=== PATIENT | male | born 1950 | race Caucasian/White ===

== ENCOUNTER 2017-08-29 11:18 | Day surgery (SDC) | payer MEDICARE, MEDICAID ==
[~2017-08-29 11:18] MED LIST: ASPI-1265 PO; ATOR10TA70 PO; CARV-50 PO; FURO20TA4 PO; LISI-604 PO; NITR0.4T48 SL
== END 2017-08-29 12:25 | disposition home or self-care (01) ==
LOC: WOUND CARE 11:18
PROVIDERS: ATTEND Surgery
DX: L97.511 Non-pressure chronic ulcer of other part of right foot limited to breakdown of skin (principal); I11.0 Hypertensive heart disease with heart failure; I50.23 Acute on chronic systolic (congestive) heart failure; F15.90 Other stimulant use, unspecified, uncomplicated; Z79.82 Long term (current) use of aspirin; Z79.899 Other long term (current) drug therapy; Z85.038 Personal history of other malignant neoplasm of large intestine
CPT/HCPCS: 17250; A6021; A6206

== ENCOUNTER 2017-09-13 11:13 | Day surgery (SDC) | payer MEDICARE, MEDICAID ==
[2017-09-13] MEDS ORDERED: LIDOcaine 2% 5ml jelly ONE (11:58)
== END 2017-09-13 12:17 | disposition home or self-care (01) ==
LOC: WOUND CARE 11:13
PROVIDERS: ATTEND Surgery
DX: T81.89XD Other complications of procedures, not elsewhere classified, subsequent encounter (principal); L98.491 Non-pressure chronic ulcer of skin of other sites limited to breakdown of skin; I11.0 Hypertensive heart disease with heart failure; I50.23 Acute on chronic systolic (congestive) heart failure; F15.90 Other stimulant use, unspecified, uncomplicated; F60.9 Personality disorder, unspecified; Z79.82 Long term (current) use of aspirin; Z79.899 Other long term (current) drug therapy; Z85.038 Personal history of other malignant neoplasm of large intestine; Z79.01 Long term (current) use of anticoagulants; Y83.8 Other surgical procedures as the cause of abnormal reaction of the patient, or of later complication, without mention of misadventure at the time of the procedure
CPT/HCPCS: 17250; A6021; A6206; A6213

== ENCOUNTER 2017-09-27 11:14 | Outpatient (CLI) | payer MEDICARE, MEDICAID | END 2017-09-27 12:40 | disposition home or self-care (01) | LOC: WOUND CARE 11:14 | PROVIDERS: ATTEND Surgery | DX: T81.89XD Other complications of procedures, not elsewhere classified, subsequent encounter (principal); L98.491 Non-pressure chronic ulcer of skin of other sites limited to breakdown of skin; I11.0 Hypertensive heart disease with heart failure; I50.23 Acute on chronic systolic (congestive) heart failure; F15.90 Other stimulant use, unspecified, uncomplicated; F60.9 Personality disorder, unspecified; Z79.82 Long term (current) use of aspirin; Z79.899 Other long term (current) drug therapy; Z85.038 Personal history of other malignant neoplasm of large intestine; Z79.01 Long term (current) use of anticoagulants; Y83.8 Other surgical procedures as the cause of abnormal reaction of the patient, or of later complication, without mention of misadventure at the time of the procedure | CPT/HCPCS: 17250; A6021; A6206; A6212 ==

== ENCOUNTER 2017-10-14 03:19 | Inpatient (IN) | payer MEDICARE, MEDICAID ==
[~2017-10-14] VITALS: Ht 170.2 cm; Wt 64.0 kg
[2017-10-14] MEDS ORDERED: albuterol 2.5 MG/3 ML nebule NEB ONE (03:55)
[2017-10-14 04:10] LABS: BASOPHILS # (AUTO) 0.1 X10'3 (0-0.2); BASOPHILS % (AUTO) 0.9 % (0-1); EOSINOPHILS # (AUTO) 0.2 X10'3 (0-0.9); EOSINOPHILS % (AUTO) 3.1 % (0-6); HEMATOCRIT 29.9 % (42.0-52.0); HEMOGLOBIN 10.2 g/dl (14.0-17.9); LYMPHOCYTES # (AUTO) 0.8 X10'3 (1.1-4.8); LYMPHOCYTES % (AUTO) 13.2 % (21-51); MEAN CORPUSCULAR HEMOGLOBIN 29.7 PG (27.0-31.0); MEAN CORPUSCULAR HGB CONC 34.2 % (33.0-36.5); MEAN CORPUSCULAR VOLUME 86.7 FL (78-98); MEAN PLATELET VOLUME 7.5 FL (7.4-10.4); MONOCYTES # (AUTO) 0.5 X10'3 (0-0.9); MONOCYTES % (AUTO) 9.1 % (2-12); NEUTROPHILS # (AUTO) 4.4 X10'3 (1.8-7.7); NEUTROPHILS % (AUTO) 73.7 % (42-75); PLATELET COUNT 249 X10'3 (140-440); RED BLOOD COUNT 3.45 X10'6 (4.70-6.10); RED CELL DISTRIBUTION WIDTH 15.5 % (11.5-14.5)
[2017-10-14 04:32] LABS: ANION GAP 8 (8-16); BLOOD UREA NITROGEN 47 MG/DL (7-18); BUN/CREATININE RATIO 33.6 (5.4-32.0); CALCIUM 8.1 MG/DL (8.5-10.1); CHLORIDE 102 MMOL/L (99-107); GLUCOSE 108 MG/DL (70-104); PHOSPHORUS 4.8 MG/DL (2.3-4.5); POTASSIUM 4.2 MMOL/L (3.5-5.1); SODIUM 138 MMOL/L (135-145); TOTAL CARBON DIOXIDE 27.9 MMOL/L (24-32); eGFR 50 ML/MIN
[2017-10-14 04:33] LABS: ALANINE AMINOTRANSFERASE 69 U/L (12-78); ALBUMIN 3.1 G/DL (3.4-5.0); ALBUMIN/GLOBULIN RATIO 0.8 (1.1-1.5); ALKALINE PHOSPHATASE 149 IU/L (46-116); ASPARTATE AMINO TRANSFERASE 56 U/L (10-37); BILIRUBIN,TOTAL 0.4 MG/DL (0.1-1.0); MAGNESIUM 1.7 MG/DL (1.5-2.4)
[2017-10-14] MEDS ORDERED: normal saline 1000ml 1,000 ML IV SCH (04:45)
[2017-10-14] MEDS ORDERED: diphenhydrAMINE 25mg capsule PO PRN (04:45)
[2017-10-14] MEDS ORDERED: magnesium hydroxide 30ml (MOM) UD suspension PO PRN (04:45)
[2017-10-14] MEDS ORDERED: ondansetron/PF 4mg/2ml inj IV PRN (04:45)
[2017-10-14] MEDS ORDERED: bisacodyl 10mg suppository rectal RC PRN (04:45)
[2017-10-14] MEDS ORDERED: HYDROmorphone inj. 0.5 MG/0.5 ML DISP.SYRIN IV PRN ×2 (04:45)
[2017-10-14] MEDS ORDERED: HYDROcodone/acetaminophen 5mg/325mg tablet PO PRN (04:45)
[2017-10-14] MEDS ORDERED: mag hydrox/Alum hydrox/simeth 30ml oral suspension PO PRN (04:45)
[2017-10-14] MEDS ORDERED: HYDROcodone/acetaminophen 10/325mg tab PO PRN (04:45)
[2017-10-14] MEDS ORDERED: diphenhydrAMINE 50 mg/ml inj IV PRN (04:45)
[2017-10-14] MEDS ORDERED: morphine 2 MG/ML inj. syringe IV PRN ×2 (04:45)
[2017-10-14] MEDS ORDERED: metoclopramide 5 mg/ml inj IV PRN (04:45)
[2017-10-14] MEDS ORDERED: acetaminophen 650mg rectal suppository RC PRN (04:45)
[2017-10-14] MEDS ORDERED: acetaminophen 325mg tablet PO PRN (04:45)
[2017-10-14] MEDS ORDERED: aspirin 81mg tab.chew PO ONE (05:10)
[2017-10-14] MEDS ORDERED: furosemide 10 MG/1 ML 10ml inj IV ONE (05:10)
[2017-10-14 07:08] LABS: URINE AMPHETAMINE SCREEN POSITIVE (Neg); URINE BARBITUATE SCREEN NEGATIVE (Neg); URINE BENZODIAZEPINES SCREEN NEGATIVE (Neg); URINE CANNABINOID SCREEN NEGATIVE (Neg); URINE COCAINE SCREEN NEGATIVE (Neg); URINE METHADONE SCREEN NEGATIVE (Neg); URINE OPIATE SCREEN NEGATIVE (Neg); URINE PHENCYCLIDINE SCREEN NEGATIVE (Neg)
[2017-10-14 07:30] VITALS: BP 111/68
[2017-10-14] MEDS ORDERED: aspirin 81mg tab.chew PO SCH (08:00)
[2017-10-14] MEDS: carVEDilol 12.5mg tablet PO SCH ×2 (09:02→20:00)
[2017-10-14] MEDS: lisinopril 5mg tablet PO SCH (09:02)
[2017-10-14] MEDS: pantoprazole 40mg Tablet.DR PO SCH (09:02)
[2017-10-14] MEDS: enoxaparin 60mg/0.6ml syringe SUBCUT SCH ×2 (09:02→20:45)
[2017-10-14] MEDS: docusate sod 100mg capsule PO SCH ×2 (09:02→20:00)
[2017-10-14 11:00] VITALS: BP 91/56
[2017-10-14 15:00] VITALS: BP 90/51
[2017-10-14 19:00] VITALS: BP 97/55
[2017-10-14] MEDS ORDERED: atorvastatin 10mg tablet PO SCH (21:00)
[2017-10-14] MEDS ORDERED: temazepam 15mg capsule PO PRN (21:00)
[2017-10-14 23:00] VITALS: BP 92/65
[2017-10-15] MEDS ORDERED: LORazepam 2 mg/ml vial IV PRN (02:50)
[2017-10-15 03:00] VITALS: BP 92/66
[2017-10-15 05:08] LABS: BASOPHILS # (AUTO) 0.1 X10'3 (0-0.2); BASOPHILS % (AUTO) 0.8 % (0-1); EOSINOPHILS # (AUTO) 0.2 X10'3 (0-0.9); EOSINOPHILS % (AUTO) 3.1 % (0-6); HEMATOCRIT 33.4 % (42.0-52.0); HEMOGLOBIN 11.3 g/dl (14.0-17.9); LYMPHOCYTES # (AUTO) 1.1 X10'3 (1.1-4.8); LYMPHOCYTES % (AUTO) 15.2 % (21-51); MEAN CORPUSCULAR HEMOGLOBIN 29.5 PG (27.0-31.0); MEAN CORPUSCULAR HGB CONC 33.7 % (33.0-36.5); MEAN CORPUSCULAR VOLUME 87.5 FL (78-98); MEAN PLATELET VOLUME 7.9 FL (7.4-10.4); MONOCYTES # (AUTO) 0.6 X10'3 (0-0.9); MONOCYTES % (AUTO) 8.6 % (2-12); NEUTROPHILS # (AUTO) 5.3 X10'3 (1.8-7.7); NEUTROPHILS % (AUTO) 72.3 % (42-75); PLATELET COUNT 308 X10'3 (140-440); RED BLOOD COUNT 3.81 X10'6 (4.70-6.10); RED CELL DISTRIBUTION WIDTH 16.1 % (11.5-14.5); WHITE BLOOD COUNT 7.3 X10'3 (4.5-11.0)
[2017-10-15 05:28] LABS: ALANINE AMINOTRANSFERASE 58 U/L (12-78); ALBUMIN 3.2 G/DL (3.4-5.0); ALBUMIN/GLOBULIN RATIO 0.8 (1.1-1.5); ALKALINE PHOSPHATASE 140 IU/L (46-116); ANION GAP 8 (8-16); ASPARTATE AMINO TRANSFERASE 29 U/L (10-37); BILIRUBIN,TOTAL 0.4 MG/DL (0.1-1.0); BLOOD UREA NITROGEN 43 MG/DL (7-18); BUN/CREATININE RATIO 28.1 (5.4-32.0); CALCIUM 8.6 MG/DL (8.5-10.1); CHLORIDE 104 MMOL/L (99-107); CHOL/HDL RATIO 2.5 (0.00-4.99); CHOLESTEROL 98 MG/DL (0-200); CREATININE 1.53 MG/DL (0.60-1.10); GLUCOSE 118 MG/DL (70-104); HDL CHOLESTEROL 40 MG/DL (35-60); LDL CHOLESTEROL 47 MG/DL (50-100); POTASSIUM 4.6 MMOL/L (3.5-5.1); SODIUM 139 MMOL/L (135-145); TOTAL CARBON DIOXIDE 27.3 MMOL/L (24-32); TOTAL PROTEIN 7.4 G/DL (6.4-8.2); TRIGLYCERIDES 53 MG/DL (20-135); eGFR 45 ML/MIN
[2017-10-15 07:00] VITALS: BP 124/94
[2017-10-15] MEDS: lisinopril 5mg tablet PO SCH (07:57)
[2017-10-15] MEDS: carVEDilol 12.5mg tablet PO SCH (07:57)
[2017-10-15] MEDS: enoxaparin 60mg/0.6ml syringe SUBCUT SCH (07:57)
[2017-10-15] MEDS: pantoprazole 40mg Tablet.DR PO SCH (07:57)
[2017-10-15] MEDS: docusate sod 100mg capsule PO SCH (07:58)
== END 2017-10-15 09:25 | disposition left against medical advice (07) | DRG 280 ==
LOC: ER 03:19 → ED HOLD 04:45 → EDBEDREQ 06:34 → PCU 3S 07:25
PROVIDERS: ADMIT Family Medicine; ATTEND Emergency Medicine
DX: I21.4 Non-ST elevation (NSTEMI) myocardial infarction (principal); I50.23 Acute on chronic systolic (congestive) heart failure; N17.9 Acute kidney failure, unspecified; I11.0 Hypertensive heart disease with heart failure; E86.0 Dehydration; E86.1 Hypovolemia; F15.10 Other stimulant abuse, uncomplicated; Z53.21 Procedure and treatment not carried out due to patient leaving prior to being seen by health care provider; Z93.3 Colostomy status; Z91.030 Bee allergy status; Z79.899 Other long term (current) drug therapy; Z79.82 Long term (current) use of aspirin; Z85.038 Personal history of other malignant neoplasm of large intestine; Z82.5 Family history of asthma and other chronic lower respiratory diseases; Z83.3 Family history of diabetes mellitus
CPT/HCPCS: 36415; 71045; 80053; 80061; 80305; 83735; 83880; 84100; 84484; 85025; 93005; 94640; 94760; 99285; J1650; J1940; J2060; J7030

== ENCOUNTER 2021-03-18 03:41 | Emergency (ER) | payer MEDICARE, MEDICAID ==
[~2021-03-18] VITALS: Ht 170.2 cm; Wt 65.9 kg
[~2021-03-18 03:41] MED LIST changes: -CARV-50 PO; +CARV6.253 PO; +FLO0.4C PO; -LISI-604 PO; +LISI-790 PO; +METO-395 PO
[2021-03-18 05:07] LABS: EOSINOPHILS # (AUTO) 0.2 X10'3 (0-0.9); EOSINOPHILS % (AUTO) 3.3 % (0-6); MONOCYTES # (AUTO) 0.9 X10'3 (0-0.9); NEUTROPHILS # (AUTO) 3.9 X10'3 (1.8-7.7); WHITE BLOOD COUNT 6.1 X10'3 (4.5-11.0)
[2021-03-18 05:09] LABS: BASOPHILS % (AUTO) 0.7 % (0-1); HEMATOCRIT 36.9 % (42.0-52.0); HEMOGLOBIN 12.4 g/dl (14.0-17.9); LYMPHOCYTES # (AUTO) 1.1 X10'3 (1.1-4.8); LYMPHOCYTES % (AUTO) 17.8 % (21-51); MEAN CORPUSCULAR HEMOGLOBIN 32.2 PG (27.0-31.0); MEAN CORPUSCULAR HGB CONC 33.6 g/dL (33.0-36.5); MEAN PLATELET VOLUME 7.8 FL (7.4-10.4); MONOCYTES % (AUTO) 14.1 % (2-12); NEUTROPHILS % (AUTO) 64.1 % (42-75); PLATELET COUNT 202 X10'3 (140-440); RED BLOOD COUNT 3.84 X10'6 (4.70-6.10); RED CELL DISTRIBUTION WIDTH 15.6 % (11.5-14.5)
[2021-03-18 05:19] LABS: CLARITY,URINE BLOODY (Clear); COLOR,URINE RED (Yellow); UA COLLECTION TYPE CLN CATCH MIDSTREAM
[2021-03-18 05:21] LABS: BACTERIA,URINE 3+ /HPF (Neg); MUCUS STRANDS NONE SEEN /LPF (Neg); RBC,URINE TNTC /HPF (0-2); SQUAMOUS EPITHELIAL CELL,UR FEW /LPF (FEW); WBC CLUMPS,URINE MANY /HPF (NEGATIVE); WBC,URINE TNTC /HPF (0-4)
[2021-03-18 05:39] LABS: ALANINE AMINOTRANSFERASE 28 U/L (12-78); ALBUMIN/GLOBULIN RATIO 1.1 (1.1-1.5); ALKALINE PHOSPHATASE 113 IU/L (46-116); ANION GAP 9 (8-16); ASPARTATE AMINO TRANSFERASE 23 U/L (10-37); BILIRUBIN,TOTAL 0.4 MG/DL (0.1-1.0); BLOOD UREA NITROGEN 44 MG/DL (7-18); BUN/CREATININE RATIO 27.3 (5.4-32.0); CALCIUM 8.6 MG/DL (8.5-10.1); CHLORIDE 104 MMOL/L (99-107); CREATININE 1.61 MG/DL (0.60-1.10); GLUCOSE 88 MG/DL (70-104); LIPASE 443 U/L (73-393); POTASSIUM 4.7 MMOL/L (3.5-5.1); SODIUM 135 MMOL/L (135-145); TOTAL CARBON DIOXIDE 21.9 MMOL/L (24-32); TOTAL PROTEIN 7.5 G/DL (6.4-8.2); eGFR 42 ML/MIN
[2021-03-18 07:17] VITALS: BP 98/58
[2021-03-18] MEDS ORDERED: CEPH-585 PO (07:30)
[2021-03-18] MEDS ORDERED: cephalexin 500mg capsule PO ONE (07:30)
== END 2021-03-18 07:46 | disposition home or self-care (01) ==
LOC: ER 03:42
DX: N30.81 Other cystitis with hematuria (principal); I11.0 Hypertensive heart disease with heart failure; I50.9 Heart failure, unspecified; F17.200 Nicotine dependence, unspecified, uncomplicated; F15.90 Other stimulant use, unspecified, uncomplicated; Z86.73 Personal history of transient ischemic attack (TIA), and cerebral infarction without residual deficits; Z87.01 Personal history of pneumonia (recurrent); Z85.038 Personal history of other malignant neoplasm of large intestine; Z98.890 Other specified postprocedural states; Z79.82 Long term (current) use of aspirin; Z79.2 Long term (current) use of antibiotics; Z79.899 Other long term (current) drug therapy
CPT/HCPCS: 36415; 80053; 81001; 83690; 85025; 87088; 99283

== ENCOUNTER 2021-04-12 20:12 | Inpatient (IN) | payer MEDICARE, MEDICAID ==
[~2021-04-12] VITALS: Ht 170.2 cm; Wt 65.4 kg
[~2021-04-12 20:12] MED LIST changes: +CEPH-585 PO
[2021-04-12 20:57] LABS: BASOPHILS % (AUTO) 0.6 % (0-1); EOSINOPHILS # (AUTO) 0.2 X10'3 (0-0.9); HEMATOCRIT 36.4 % (42.0-52.0); HEMOGLOBIN 12.3 g/dl (14.0-17.9); LYMPHOCYTES % (AUTO) 18.1 % (21-51); MEAN CORPUSCULAR HEMOGLOBIN 32.1 PG (27.0-31.0); MEAN CORPUSCULAR HGB CONC 33.8 g/dL (33.0-36.5); MEAN PLATELET VOLUME 7.5 FL (7.4-10.4); MONOCYTES # (AUTO) 0.6 X10'3 (0-0.9); MONOCYTES % (AUTO) 9.9 % (2-12); NEUTROPHILS # (AUTO) 3.9 X10'3 (1.8-7.7); NEUTROPHILS % (AUTO) 68.4 % (42-75); PLATELET COUNT 208 X10'3 (140-440); RED BLOOD COUNT 3.83 X10'6 (4.70-6.10); RED CELL DISTRIBUTION WIDTH 14.6 % (11.5-14.5); WHITE BLOOD COUNT 5.7 X10'3 (4.5-11.0)
[2021-04-12 21:01] LABS: ALANINE AMINOTRANSFERASE 34 U/L (12-78); ALBUMIN 4.1 G/DL (3.4-5.0); ALBUMIN/GLOBULIN RATIO 1.1 (1.1-1.5); ALKALINE PHOSPHATASE 102 IU/L (46-116); ANION GAP 13 (8-16); ASPARTATE AMINO TRANSFERASE 24 U/L (10-37); BILIRUBIN,TOTAL 0.3 MG/DL (0.1-1.0); BLOOD UREA NITROGEN 53 MG/DL (7-18); BUN/CREATININE RATIO 31.7 (5.4-32.0); CALCIUM 8.5 MG/DL (8.5-10.1); CHLORIDE 105 MMOL/L (99-107); CREATININE 1.67 MG/DL (0.60-1.10); GLUCOSE 109 MG/DL (70-104); POTASSIUM 4.8 MMOL/L (3.5-5.1); SODIUM 138 MMOL/L (135-145); TOTAL CARBON DIOXIDE 19.9 MMOL/L (24-32); TOTAL PROTEIN 7.7 G/DL (6.4-8.2); eGFR 41 ML/MIN
[2021-04-12 21:10] LABS: TROPONIN I 0.11 NG/ML (0.0-0.05)
--- NOTE | 2021-04-12 21:14 | NUR ---
PT TAKEN TO ROOM 7 VIA MD Hanna NOTIFIED OF CURRENT BP
--- NOTE | 2021-04-12 22:00 | NUR ---
PT BP MID-80'S PROVIDER AWARE.
[2021-04-12] MEDS ORDERED: normal saline 1000ml 1,000 ML IV ONE (22:15)
[2021-04-12] MEDS ORDERED: aspirin 81mg tab.chew PO ONE (22:15)
--- NOTE | 2021-04-13 02:27 | NUR ---
PT UP AND AMBULATORY TO BATHROOM WITH STEADY GAIT.
[2021-04-13] MEDS ORDERED: magnesium hydroxide 30ml (MOM) UD suspension PO PRN (03:05)
[2021-04-13] MEDS ORDERED: potassium Cl 40MEQ/1/2NS 520ml 520 ML IV PRN ×2 (03:05)
[2021-04-13] MEDS ORDERED: mag hydrox/Alum hydrox/simeth 30ml oral suspension PO PRN (03:05)
[2021-04-13] MEDS ORDERED: magnesium 4gm in 100ml NS 100 ML IV PRN (03:05)
[2021-04-13] MEDS ORDERED: normal saline 1000ml 1,000 ML IV SCH (03:05)
[2021-04-13] MEDS ORDERED: ondansetron/PF 4mg/2ml inj IV PRN (03:05)
[2021-04-13] MEDS ORDERED: magnesium Cl slow-release 64mg tablet PO PRN (03:05)
[2021-04-13] MEDS ORDERED: acetaminophen 325mg tablet PO PRN ×2 (03:05)
[2021-04-13] MEDS ORDERED: magnesium 2GM in 50ml NS 50 ML IV PRN (03:05)
[2021-04-13] MEDS ORDERED: potassium Cl 20 mEq SR tablet PO PRN ×2 (03:05)
--- NOTE | 2021-04-13 06:56 | NUR ---
received report from sami sheehan
--- NOTE | 2021-04-13 07:10 | NUR ---
ORTHOPEDIC ASSISTANT AT BEDSIDE.
[2021-04-13] MEDS ORDERED: lisinopril 5mg tablet PO SCH (08:00)
[2021-04-13] MEDS: furosemide 20 MG/2 ML vial IV SCH ×2 (08:15→20:00)
[2021-04-13] MEDS: K and/or MAG REPLACEMENT MC SCH ×2 (09:00→20:00)
[2021-04-13] MEDS: aspirin 81mg tab.chew PO SCH (09:20)
[2021-04-13] MEDS: carVEDilol 3.125mg tablet PO SCH ×2 (09:21→20:00)
[2021-04-13] MEDS: tamsulosin 0.4mg capsule PO SCH (09:21)
[2021-04-13 09:49] VITALS: BP 101/45
[2021-04-13 09:50] VITALS: BP_SYST 101; BP_SYST 112; BP_SYST 94; BP_DIAS 45; BP_DIAS 49; BP_DIAS 53
[2021-04-13] MEDS: heparin, porcine 5000 units/ml vial SQ SCH ×2 (09:52→20:00)
[2021-04-13] MEDS ORDERED: CARV6.253 PO (10:45)
[2021-04-13 18:00] VITALS: BP 96/42
--- NOTE | 2021-04-13 18:17 | NUR ---
gave report to sami an
[2021-04-13 20:00] VITALS: BP_SYST 126; BP_SYST 76; BP_SYST 95; BP_SYST 97; BP_DIAS 52; BP_DIAS 56; BP_DIAS 58; BP_DIAS 59
[2021-04-13] MEDS ORDERED: atorvastatin 10mg tablet PO SCH (21:00)
[2021-04-13 22:00] VITALS: BP 99/52
[2021-04-14] VITALS: BP 99/52
[2021-04-14 02:00] VITALS: BP 97/56
[2021-04-14 04:00] VITALS: BP 97/56
[2021-04-14 06:00] VITALS: BP 96/42
[2021-04-14 06:31] LABS: BASOPHILS % (AUTO) 0.5 % (0-1); EOSINOPHILS # (AUTO) 0.2 X10'3 (0-0.9); EOSINOPHILS % (AUTO) 4.1 % (0-6); HEMATOCRIT 35.7 % (42.0-52.0); HEMOGLOBIN 12.1 g/dl (14.0-17.9); MEAN CORPUSCULAR HEMOGLOBIN 32.1 PG (27.0-31.0); MEAN CORPUSCULAR HGB CONC 33.8 g/dL (33.0-36.5); MEAN PLATELET VOLUME 7.6 FL (7.4-10.4); MONOCYTES # (AUTO) 0.5 X10'3 (0-0.9); NEUTROPHILS # (AUTO) 3.8 X10'3 (1.8-7.7); NEUTROPHILS % (AUTO) 68.4 % (42-75); PLATELET COUNT 195 X10'3 (140-440); RED BLOOD COUNT 3.76 X10'6 (4.70-6.10); RED CELL DISTRIBUTION WIDTH 14.6 % (11.5-14.5); WHITE BLOOD COUNT 5.5 X10'3 (4.5-11.0)
--- NOTE | 2021-04-14 06:39 | NUR ---
Patient in room [facility] 4021. I have received report from KENIA Guevara and had the opportunity to ask questions and assume patient care.
[2021-04-14 06:47] LABS: ALANINE AMINOTRANSFERASE 28 U/L (12-78); ALBUMIN 3.2 G/DL (3.4-5.0); ALKALINE PHOSPHATASE 96 IU/L (46-116); ANION GAP 8 (8-16); ASPARTATE AMINO TRANSFERASE 19 U/L (10-37); BILIRUBIN,TOTAL 0.2 MG/DL (0.1-1.0); BLOOD UREA NITROGEN 35 MG/DL (7-18); BUN/CREATININE RATIO 31.8 (5.4-32.0); CALCIUM 8.2 MG/DL (8.5-10.1); CHLORIDE 110 MMOL/L (99-107); CHOL/HDL RATIO 2.8 (0.00-4.99); CHOLESTEROL 113 MG/DL (0-200); GLUCOSE 89 MG/DL (70-104); HDL CHOLESTEROL 40 MG/DL (35-60); LDL CHOLESTEROL 53 MG/DL (50-100); MAGNESIUM 1.8 MG/DL (1.5-2.4); POTASSIUM 4.4 MMOL/L (3.5-5.1); SODIUM 139 MMOL/L (135-145); TOTAL CARBON DIOXIDE 20.6 MMOL/L (24-32); TOTAL PROTEIN 6.5 G/DL (6.4-8.2); TRIGLYCERIDES 99 MG/DL (20-135); eGFR 66 ML/MIN
[2021-04-14] MEDS: tamsulosin 0.4mg capsule PO SCH (07:04)
[2021-04-14] MEDS: heparin, porcine 5000 units/ml vial SQ SCH (07:04)
[2021-04-14] MEDS: aspirin 81mg tab.chew PO SCH (07:05)
[2021-04-14 08:00] VITALS: BP_SYST 100; BP_SYST 101; BP_SYST 98; BP_DIAS 48; BP_DIAS 54; BP_DIAS 57
[2021-04-14] MEDS: furosemide 20 MG/2 ML vial IV SCH (08:00)
[2021-04-14] MEDS: carVEDilol 3.125mg tablet PO SCH (08:00)
[2021-04-14] MEDS: K and/or MAG REPLACEMENT MC SCH (08:00)
[2021-04-14] MEDS ORDERED: lisinopril 2.5mg tablet PO SCH (08:00)
[2021-04-14] MEDS ORDERED: iohexol 350MG/ML 100ml bottle IV ONE (10:35)
--- NOTE | 2021-04-14 11:10 | NUR ---
Pt refused Heparin this AM, pt also refusing vital sign checks. Pt educated. Will continue to monitor.
--- NOTE | 2021-04-14 12:01 | NUR ---
Page Sent PAGER ID: [phone] MESSAGE: [phone] Regarding [id number] Natalia Orellana available for review.
--- NOTE | 2021-04-14 12:49 | NUR ---
Page Sent PAGER ID: [phone] MESSAGE: [id number] Regarding [id number] Natalia Orellana Pt states he's ready to go home in a couple hours, does not want to be here.
--- NOTE | 2021-04-14 13:02 | NUR ---
Pt left facility AMA. Discussed risk vs benefit with Pt regarding leaving against medical advise. Pt stated "I'm done, I'm out of here". Pt signed AMA paperwork, removed 20g PIV from (R) FA, tip intact. Pt left facility in stable condition.
[2021-04-15] MEDS ORDERED: spironolactone 25 MG tablet PO SCH (08:30)
== END 2021-04-14 13:00 | disposition left against medical advice (07) | DRG 312 ==
LOC: ER 20:12 → ED HOLD 04-13 03:10 → ORTHO 4S 04-13 08:50
PROVIDERS: ADMIT Internal Medicine; ATTEND Internal Medicine
PROC: B32T1ZZ Computerized Tomography (CT Scan) of Left Pulmonary Artery using Low Osmolar Contrast (ICD-10-PCS; principal; 2021-04-14)
PROC: B3201ZZ Computerized Tomography (CT Scan) of Thoracic Aorta using Low Osmolar Contrast (ICD-10-PCS; 2021-04-14)
PROC: B32S1ZZ Computerized Tomography (CT Scan) of Right Pulmonary Artery using Low Osmolar Contrast (ICD-10-PCS; 2021-04-14)
DX: R55 Syncope and collapse (principal); N17.9 Acute kidney failure, unspecified; I13.0 Hypertensive heart and chronic kidney disease with heart failure and stage 1 through stage 4 chronic kidney disease, or unspecified chronic kidney disease; I50.22 Chronic systolic (congestive) heart failure; I24.8 Other forms of acute ischemic heart disease; H81.10 Benign paroxysmal vertigo, unspecified ear; N18.30 Chronic kidney disease, stage 3 unspecified; Z53.29 Procedure and treatment not carried out because of patient's decision for other reasons; F15.90 Other stimulant use, unspecified, uncomplicated; F17.210 Nicotine dependence, cigarettes, uncomplicated; H81.13 Benign paroxysmal vertigo, bilateral; Z85.038 Personal history of other malignant neoplasm of large intestine; Z86.73 Personal history of transient ischemic attack (TIA), and cerebral infarction without residual deficits; Z93.3 Colostomy status; Z95.0 Presence of cardiac pacemaker; Z82.5 Family history of asthma and other chronic lower respiratory diseases; Z83.3 Family history of diabetes mellitus; Z71.51 Drug abuse counseling and surveillance of drug abuser
CPT/HCPCS: 36415; 71045; 71275; 80053; 80061; 83735; 83880; 84484; 85025; 85379; 87081; 93005; 93306; 93880; 97116; 97161; 97530; 99285; G0378; J7030; Q9967

== ENCOUNTER 2021-06-12 17:39 | Inpatient (IN) | payer MEDICARE, MEDICAID ==
[~2021-06-12] VITALS: Ht 170.2 cm; Wt 63.6 kg
[~2021-06-12 17:39] MED LIST changes: -CEPH-585 PO
[2021-06-12] MEDS ORDERED: acetaminophen 325mg tablet PO STA (18:00)
[2021-06-12 18:41] LABS: BASOPHILS % (AUTO) 0.5 % (0-1); EOSINOPHILS % (AUTO) 0.1 % (0-6); HEMATOCRIT 37.1 % (42.0-52.0); HEMOGLOBIN 13.2 g/dl (14.0-17.9); LYMPHOCYTES # (AUTO) 0.4 X10'3 (1.1-4.8); LYMPHOCYTES % (AUTO) 6.8 % (21-51); MEAN CORPUSCULAR HEMOGLOBIN 32.2 PG (27.0-31.0); MEAN CORPUSCULAR HGB CONC 35.5 g/dL (33.0-36.5); MEAN CORPUSCULAR VOLUME 90.8 FL (78-98); MEAN PLATELET VOLUME 7.6 FL (7.4-10.4); MONOCYTES # (AUTO) 0.4 X10'3 (0-0.9); MONOCYTES % (AUTO) 6.8 % (2-12); NEUTROPHILS # (AUTO) 5.2 X10'3 (1.8-7.7); NEUTROPHILS % (AUTO) 85.8 % (42-75); PLATELET COUNT 263 X10'3 (140-440); RED BLOOD COUNT 4.09 X10'6 (4.70-6.10); RED CELL DISTRIBUTION WIDTH 14.6 % (11.5-14.5)
[2021-06-12 18:49] LABS: D-DIMER 2.35 MG/L FEU (0-0.50)
[2021-06-12 19:04] LABS: ALANINE AMINOTRANSFERASE 53 U/L (12-78); ALBUMIN 3.1 G/DL (3.4-5.0); ALBUMIN/GLOBULIN RATIO 0.6 (1.1-1.5); ALKALINE PHOSPHATASE 88 IU/L (46-116); ANION GAP 14 (8-16); ASPARTATE AMINO TRANSFERASE 65 U/L (10-37); BILIRUBIN,TOTAL 0.5 MG/DL (0.1-1.0); BLOOD UREA NITROGEN 46 MG/DL (7-18); BUN/CREATININE RATIO 26.3 (5.4-32.0); CALCIUM 8.7 MG/DL (8.5-10.1); CHLORIDE 102 MMOL/L (99-107); CREATININE 1.75 MG/DL (0.60-1.10); GLUCOSE 108 MG/DL (70-104); MAGNESIUM 2.2 MG/DL (1.5-2.4); POTASSIUM 5.1 MMOL/L (3.5-5.1); SODIUM 134 MMOL/L (135-145); TOTAL CARBON DIOXIDE 18.2 MMOL/L (24-32); TOTAL PROTEIN 8.2 G/DL (6.4-8.2); eGFR 38 ML/MIN
[2021-06-12 19:05] LABS: COLOR,URINE YELLOW (Yellow); UA COLLECTION TYPE NON-SPECIFIED
[2021-06-12 19:06] LABS: CLARITY,URINE CLOUDY (Clear); GLUCOSE, URINE NEGATIVE (Neg); KETONES,URINE NEGATIVE (Neg); LEUKOCYTE ESTERASE ,URINE LARGE (Neg); NITRITES, URINE NEGATIVE (Neg); OCCULT BLOOD,URINE MODERATE (Neg); PROTEIN,URINE 30 mg/dl (Neg); UROBILINOGEN,URINE 0.2 E.U/dL (0.2-1.0)
[2021-06-12 19:14] LABS: BURR CELLS 2+; PLATELET ESTIMATE NORMAL
[2021-06-12 19:15] LABS: ELLIPTOCYTES FEW
[2021-06-12 19:16] LABS: GIANT PLATELET FEW; SCHISTOCYTES FEW
[2021-06-12] MEDS ORDERED: iohexol 350MG/ML 100ml bottle IV ONE (19:16)
[2021-06-12 19:18] LABS: BACTERIA,URINE 3+ /HPF (Neg); RBC,URINE 0-2 /HPF (0-2); SQUAMOUS EPITHELIAL CELL,UR NONE SEEN /LPF (FEW); WBC,URINE TNTC /HPF (0-4)
[2021-06-12] MEDS ORDERED: CefTRIAXone/D5W-Rocephin 1gm 50 ML IV ONE (20:00)
[2021-06-12] MEDS ORDERED: normal saline 1000ML IV soln IVB ONE (20:20)
[2021-06-12] MEDS ORDERED: temazepam 15mg capsule PO PRN (21:00)
[2021-06-12] MEDS ORDERED: bisacodyl 10mg suppository rectal RC PRN (21:10)
[2021-06-12] MEDS ORDERED: diphenhydrAMINE 50 mg/ml inj IV PRN (21:10)
[2021-06-12] MEDS ORDERED: normal saline 1000ml 1,000 ML IV SCH (21:10)
[2021-06-12] MEDS ORDERED: ondansetron/PF 4mg/2ml inj IV PRN (21:10)
[2021-06-12] MEDS ORDERED: diphenhydrAMINE 25mg capsule PO PRN (21:10)
[2021-06-12] MEDS ORDERED: acetaminophen 325mg tablet PO PRN ×2 (21:10)
[2021-06-12] MEDS ORDERED: ondansetron 4mg rapidly disintigrating tab PO PRN (21:10)
[2021-06-12] MEDS ORDERED: morphine 2 MG/ML inj. syringe IV PRN ×2 (21:10)
[2021-06-12] MEDS ORDERED: acetaminophen 650mg rectal suppository RC PRN (21:10)
[2021-06-12] MEDS ORDERED: magnesium hydroxide 30ml (MOM) UD suspension PO PRN (21:10)
[2021-06-12] MEDS ORDERED: mag hydrox/Alum hydrox/simeth 30ml oral suspension PO PRN (21:10)
[2021-06-12] MEDS ORDERED: HYDROcodone/acetaminophen 10/325mg tab PO PRN (21:10)
[2021-06-12] MEDS ORDERED: HYDROcodone/acetaminophen 5mg/325mg tablet PO PRN (21:10)
[2021-06-12] MEDS ORDERED: ALBUTEROL INHALER 1 PUFF/90 MCG INHALER IH PRN (21:20)
[2021-06-12 21:55] VITALS: BP 94/56
[2021-06-12 23:48] LABS: PARTIAL THROMBOPLASTIN TIME 38 SECONDS (22-32)
[2021-06-13 00:45] LABS: HEMOGLOBIN A1C 7.6 % (4.5-6.2)
[2021-06-13 01:28] LABS: URINE AMPHETAMINE SCREEN POSITIVE (Neg)
[2021-06-13 01:29] LABS: URINE BARBITUATE SCREEN NEGATIVE (Neg); URINE BENZODIAZEPINES SCREEN NEGATIVE (Neg); URINE CANNABINOID SCREEN NEGATIVE (Neg); URINE COCAINE SCREEN NEGATIVE (Neg); URINE METHADONE SCREEN NEGATIVE (Neg); URINE OPIATE SCREEN NEGATIVE (Neg); URINE PHENCYCLIDINE SCREEN NEGATIVE (Neg)
--- NOTE | 2021-06-13 01:53 | NUR ---
pt notified of the possibly fatal effects of leaving in the patient's condition. pt originally said he wanted to leave AMA and that he would sign the AMA form. however, ten minutes later the pt decided to AWOL from the facility without signing the AMA form.
[2021-06-13] MEDS ORDERED: pantoprazole 40mg Tablet.DR PO SCH (07:30)
[2021-06-13] MEDS ORDERED: CefTRIAXone/D5W-Rocephin 1gm 50 ML IV SCH (08:00)
[2021-06-13] MEDS ORDERED: azithromycin/NS 500mg/250ml 250 ML IV SCH (08:00)
[2021-06-13] MEDS ORDERED: docusate sod 100mg capsule PO SCH (08:00)
[2021-06-13] MEDS ORDERED: dexamethasone 4mg/ml inj IV SCH (08:00)
[2021-06-13] MEDS ORDERED: enoxaparin 30mg/0.3ml syringe SQ SCH (08:00)
== END 2021-06-13 01:57 | disposition left against medical advice (07) | DRG 177 ==
LOC: ER 17:39 → ED HOLD 21:19
PROVIDERS: ADMIT Family Medicine; ATTEND Family Medicine
DX: U07.1 COVID-19 (principal); I50.23 Acute on chronic systolic (congestive) heart failure; J12.82 Pneumonia due to coronavirus disease 2019; J96.01 Acute respiratory failure with hypoxia; N39.0 Urinary tract infection, site not specified; N17.9 Acute kidney failure, unspecified; E87.2 Acidosis; I42.9 Cardiomyopathy, unspecified; E11.9 Type 2 diabetes mellitus without complications; E78.5 Hyperlipidemia, unspecified; F17.200 Nicotine dependence, unspecified, uncomplicated; E86.1 Hypovolemia; F15.129 Other stimulant abuse with intoxication, unspecified; I11.0 Hypertensive heart disease with heart failure; I44.7 Left bundle-branch block, unspecified; N40.0 Benign prostatic hyperplasia without lower urinary tract symptoms; Z53.29 Procedure and treatment not carried out because of patient's decision for other reasons; Z85.038 Personal history of other malignant neoplasm of large intestine; Z86.73 Personal history of transient ischemic attack (TIA), and cerebral infarction without residual deficits; Z90.49 Acquired absence of other specified parts of digestive tract; Z93.3 Colostomy status; Z95.0 Presence of cardiac pacemaker; Z82.5 Family history of asthma and other chronic lower respiratory diseases; Z83.3 Family history of diabetes mellitus; Z79.899 Other long term (current) drug therapy; Z79.82 Long term (current) use of aspirin; Z71.51 Drug abuse counseling and surveillance of drug abuser
CPT/HCPCS: 36415; 71045; 80053; 80305; 81001; 83036; 83735; 83880; 84100; 84145; 84443; 85008; 85025; 85379; 85610; 85730; 87077; 87088; 87186; 87635; 96365; 99285; C9803; G0378; J0696; J7030; Q9967